=== PATIENT | male | born 1940 | race Caucasian/White ===

== ENCOUNTER 2023-10-17 15:58 | Emergency (ER) | payer OTHER ==
[~2023-10-17] VITALS: Ht 167.6 cm; Wt 63.5 kg
[2023-10-17 16:07] VITALS: BP 152/74; PULSE 84; RESP 20; TEMP 98.9; O2SAT 96
[2023-10-17 16:15] VITALS: TEMP 98.9
[2023-10-17] MEDS: KETOROLAC 60 MG/2 ML VIAL IM ONE (16:55)
[2023-10-17 20:25] VITALS: BP 154/59; PULSE 70; RESP 17; O2SAT 94
== END 2023-10-17 20:25 | disposition home or self-care (01) ==
LOC: MED 15:58
DX: R60.9 Edema, unspecified (principal); Z79.899 Other long term (current) drug therapy
CPT/HCPCS: 73610; 73630; 73700; 96372; 99285; J1885